=== PATIENT | female | born 1940 | race Caucasian/White ===

== ENCOUNTER 2017-03-20 06:32 | Day surgery (SDC) | payer MEDICARE, OTHER ==
--- NOTE | ~2017-03-20 | OP ---
Record Of Operation [facility] [address] [place]. [address] NAME: JESSICA MAGALLANES : 42 STATUS : [facility]#: [id number] AGE: 76 ADM/REG DATE : 03/20/17 MR#: [id number] REPORT SERV DATE: 03/20/17 DICTATED BY: MICAH YOU DATE: 03/20/17 REPORT STATUS : Draft TRANSCRIBED BY: MODL DATE: 03/20/17 DATE OF PROCEDURE: 03/20/2017 PREOPERATIVE DIAGNOSES: 1. History of breast cancer. 2. Indwelling left chest wall port. POSTOPERATIVE DIAGNOSIS: History of breast cancer. PROCEDURE: Removal of left chest wall port. INDICATION FOR THE PROCEDURE: This is a 76-year-old female, who has been treated for right breast cancer. She has an indwelling left chest wall port that can be removed today. OPERATIVE FINDINGS: After appropriate consent was noted on the chart, the patient was taken to the operating room in supine position. Her arms were tucked and a shoulder roll placed. The patient's left chest wall was cleansed. Local anesthetic of 1% lidocaine was instilled into the soft tissue overlying the port in the scar. The scar was opened with a #15 blade. Sharp dissection was carried down to the port catheter and hub. The hub was pulled up toward the wound. The catheter grasped and removed from the vein without issue. The catheter was then removed by clipping the two stay sutures, which were removed. The port appeared to be in good working function. No sign of infection or issue. The wound was irrigated and hemostasis achieved. It was closed in two layers of Monocryl. The skin was cleansed and dried. Dermabond overlaid. At the end of the case, all counts were correct. ESTIMATED BLOOD LOSS: 5 mL. COMPLICATIONS: None. SPECIMENS: None. CHRIS/LIVIER Micah You MD / [id number] CC: MD Zeus Monte M.D. [facility]
[~2017-03-20 06:32] MED LIST: ACET500CAP PO; ATEN25 PO; TAMOXIFEN20 M1 PO
== END 2017-03-20 10:09 | disposition home or self-care (01) ==
LOC: SDC 06:32
PROVIDERS: Surgery Surgical Oncology
PROC: 0JPT0WZ Removal of Totally Implantable Vascular Access Device from Trunk Subcutaneous Tissue and Fascia, Open Approach (ICD-10-PCS; principal; 2017-03-20 07:45)
DX: Z45.2 Encounter for adjustment and management of vascular access device (principal); Z85.3 Personal history of malignant neoplasm of breast
CPT/HCPCS: J3370